=== PATIENT | female | born 1950 | race Caucasian/White ===

== ENCOUNTER 2017-11-07 14:56 | Outpatient (REF) | payer MEDICARE, SELFPAY ==
[2017-11-07 20:59] LABS: Anion Gap 11.1 mmol/L (3-11); BUN 24 mg/dL (7-18); CO2 25.9 mmol/L (21.0-32.0); CREATININE 1.08 mg/dL (0.55-1.02); Calcium 9.4 mg/dL (8.5-10.1); Chloride 101 mmol/L (98-107); Glucose 118 mg/dL (70-100); Potassium 4.3 mmol/L (3.5-5.1); Sodium 138 mmol/L (136-145); TSH (W/Ref FT4) 2.53 uIU/mL (0.358-3.74)
== END 2017-11-07 14:57 ==
LOC: NCHCN 14:56
PROVIDERS: PCP Family Medicine; Visit Provider Family Medicine
DX: E03.9 Hypothyroidism, unspecified (principal); I10 Essential (primary) hypertension; E11.9 Type 2 diabetes mellitus without complications; N18.9 Chronic kidney disease, unspecified
CPT/HCPCS: 80048; 84443

== ENCOUNTER 2018-05-01 09:58 | Outpatient (REF) | payer MEDICARE, SELFPAY | END 2018-05-01 10:18 | LOC: NCHCN 09:58 | PROVIDERS: PCP Family Medicine; Visit Provider Family Medicine | DX: R30.0 Dysuria (principal) | CPT/HCPCS: 87077; 87086; 87186 ==

== ENCOUNTER 2018-05-17 21:05 | Outpatient (REF) | payer MEDICARE, SELFPAY ==
[2018-05-17 22:34] LABS: Anion Gap 11.5 mmol/L (3-11); BUN 24 mg/dL (7-18); CO2 25.5 mmol/L (21.0-32.0); CREATININE 1.22 mg/dL (0.55-1.02); Calcium 9.4 mg/dL (8.5-10.1); Chloride 103 mmol/L (98-107); Glucose 175 mg/dL (70-100); Potassium 4.6 mmol/L (3.5-5.1); Sodium 140 mmol/L (136-145)
== END 2018-05-17 21:25 ==
LOC: NCHCN 21:05
PROVIDERS: PCP Family Medicine; Visit Provider Family Medicine
DX: N18.3 Chronic kidney disease, stage 3 (moderate) (principal)
CPT/HCPCS: 80048

== ENCOUNTER 2018-12-26 18:05 | Outpatient (REF) | payer MEDICARE, SELFPAY ==
[2018-12-26 22:27] LABS: ALT 43 U/L (14-59); AST 18 U/L (15-37); Alkaline Phosphatase 138 U/L (46-116); Anion Gap 7.2 mmol/L (3-11); BUN 31 mg/dL (7-18); Bilirubin, Total 0.4 mg/dL (0.2-1.0); CO2 30.8 mmol/L (21.0-32.0); CREATININE 1.13 mg/dL (0.55-1.02); Calcium 10.2 mg/dL (8.5-10.1); Chloride 101 mmol/L (98-107); Glucose 169 mg/dL (70-100); Magnesium 1.9 mg/dL (1.8-2.4); Sodium 139 mmol/L (136-145); TSH (W/Ref FT4) 2.94 uIU/mL (0.36-3.74); Total Protein 7.8 g/dL (6.4-8.2)
[2018-12-27 05:18] LABS: Vitamin D 25 Total 42.6 ng/ml (30-100)
== END 2018-12-26 18:25 ==
LOC: NCHCN 18:05
PROVIDERS: PCP Family Medicine; Visit Provider Family Medicine
DX: E03.9 Hypothyroidism, unspecified (principal); E11.9 Type 2 diabetes mellitus without complications; N18.3 Chronic kidney disease, stage 3 (moderate); K59.00 Constipation, unspecified
CPT/HCPCS: 80053; 82306; 83735; 84443

== ENCOUNTER 2019-04-05 19:02 | Outpatient (REF) | payer MEDICARE, SELFPAY ==
[2019-04-05 20:56] LABS: COMMENT (LAB VIEW ONLY) 40.11 mg/dL; Microalb ug/mg Crea 43.6 ug/mg Cr
== END 2019-04-05 19:22 ==
LOC: NCHCN 19:02
PROVIDERS: PCP Family Medicine; Visit Provider Family Medicine
DX: E11.9 Type 2 diabetes mellitus without complications (principal)
CPT/HCPCS: 82043; 82570

== ENCOUNTER 2019-05-14 14:46 | Outpatient (REF) | payer MEDICARE, SELFPAY ==
[2019-05-14 21:25] LABS: Anion Gap 12.5 mmol/L (3-11); BUN 30 mg/dL (7-18); CO2 24.5 mmol/L (21.0-32.0); CREATININE 1.51 mg/dL (0.55-1.02); Calcium 9.6 mg/dL (8.5-10.1); Chloride 103 mmol/L (98-107); Estimated GFR 34.07 (mL/min/1.73m2); Glucose 140 mg/dL (74-106); Potassium 4.7 mmol/L (3.5-5.1); Sodium 140 mmol/L (136-145)
== END 2019-05-14 15:06 ==
LOC: NCHCN 14:46
PROVIDERS: PCP Family Medicine; Visit Provider Family Medicine
DX: E11.65 Type 2 diabetes mellitus with hyperglycemia (principal)
CPT/HCPCS: 80048

== ENCOUNTER 2019-05-29 13:43 | Outpatient (REF) | payer MEDICARE, SELFPAY ==
[2019-05-29 22:18] LABS: CREATININE 1.42 mg/dL (0.55-1.02); Estimated GFR 36.57 (mL/min/1.73m2)
== END 2019-05-29 14:03 ==
LOC: NCHCN 13:43
PROVIDERS: PCP Family Medicine; Visit Provider Family Medicine
DX: I10 Essential (primary) hypertension (principal); E11.65 Type 2 diabetes mellitus with hyperglycemia; N18.3 Chronic kidney disease, stage 3 (moderate)
CPT/HCPCS: 82565

== ENCOUNTER 2019-06-28 09:39 | Outpatient (REF) | payer MEDICARE, SELFPAY ==
[2019-06-28 20:59] LABS: Anion Gap 10.4 mmol/L (3-11); BUN 27 mg/dL (7-18); CO2 27.6 mmol/L (21.0-32.0); CREATININE 1.24 mg/dL (0.55-1.02); Calcium 9.8 mg/dL (8.5-10.1); Chloride 102 mmol/L (98-107); Estimated GFR 42.64 (mL/min/1.73m2); Glucose 197 mg/dL (74-106); Sodium 140 mmol/L (136-145)
[2019-06-28 21:06] LABS: Hemoglobin A1C 7.9 % (3.8-5.6)
== END 2019-06-28 09:59 ==
LOC: NCHCN 09:39
PROVIDERS: PCP Family Medicine; Visit Provider Family Medicine
DX: E11.65 Type 2 diabetes mellitus with hyperglycemia (principal); I10 Essential (primary) hypertension
CPT/HCPCS: 80048; 83036

== ENCOUNTER 2019-12-25 12:17 | Outpatient (REF) | payer MEDICARE, SELFPAY ==
[2019-12-25 22:25] LABS: HCT 36.9 % (36.0-46.0); HGB 12.3 g/dL (11.2-15.7); MCH 28.1 pg (27.0-33.0); MCHC 33.3 % (32.0-36.0); MCV 84.4 fL (80-95); MPV 9.6 fL (8.0-11.0); Platelet Count 369 10^3/uL (130-400); RBC 4.37 10^6/uL (3.93-5.22); RDW 13.3 % (11.7-14.6); RDW-SD 41.6 fL; WBC 8.91 10^3/uL (4.4-10.8)
[2019-12-25 22:39] LABS: ALT 44 U/L (14-59); AST 23 U/L (15-37); Albumin 4.2 g/dL (3.4-5.0); Alkaline Phosphatase 99 U/L (46-116); Anion Gap 11.4 mmol/L (3-11); BUN 17 mg/dL (7-18); Bilirubin, Total 0.8 mg/dL (0.2-1.0); CO2 22.6 mmol/L (21.0-32.0); CREATININE 1.06 mg/dL (0.55-1.02); Calcium 9.2 mg/dL (8.5-10.1); Calculated LDL 100 mg/dL (<100); Chloride 98 mmol/L (98-107); Cholesterol 193 mg/dL (<200); Glucose 198 mg/dL (74-106); HDL Cholesterol 59 mg/dL (40-60); Hemoglobin A1C 7.7 % (<5.7); Potassium 4.4 mmol/L (3.5-5.1); Sodium 132 mmol/L (136-145); Total Protein 7.7 g/dL (6.4-8.2); Triglyceride 174 mg/dL (<150)
== END 2019-12-25 12:37 ==
LOC: NCHCN 12:17
PROVIDERS: PCP Family Medicine; Visit Provider Family Medicine
DX: E11.65 Type 2 diabetes mellitus with hyperglycemia (principal); I10 Essential (primary) hypertension; E78.5 Hyperlipidemia, unspecified; N18.3 Chronic kidney disease, stage 3 (moderate)
CPT/HCPCS: 80053; 80061; 85027; 83036

== ENCOUNTER 2020-01-21 15:25 | Outpatient (REF) | payer MEDICARE, SELFPAY ==
--- NOTE | 2020-01-21 09:55 | SKI_PTH ---
PATIENT: Bette Dominguez LOC: REPLACED BY [facility] U#:[id number] AGE/SX: 69/F ROOM: RE01/21/[address]: Sp iXao : 1950 BED: DIS: 01/21/2020 SPEC #: [id number] RECD: 01/22/20 12:46 STATUS: ARMOND REQ #: [id number] EDILBERTO: 01/21/20 09:[address]: Sp Xiao DEPT: Surgical Specimen RECD BY: Chloe Kim ENTERED: 01/22/20 12:47 SP TYPE: NICKI HUDDLESTON DR: Rosa Contreras Tissues: 1 - SKIN BIOPSY(SHAVE/PUNCH) Procedures: SKIN LEVEL 4 Comments: [id number]
== END 2020-01-21 15:45 ==
LOC: NCHCN 15:25
PROVIDERS: PCP Family Medicine; Visit Provider Family Medicine
DX: C44.311 Basal cell carcinoma of skin of nose (principal)
CPT/HCPCS: 88305

== ENCOUNTER 2020-03-31 23:03 | Outpatient (REF) | payer MEDICARE, SELFPAY ==
[2020-03-31 22:01] LABS: COMMENT (LAB VIEW ONLY) 37.24 mg/dL
[2020-03-31 22:07] LABS: Microalb ug/mg Crea 126.5 ug/mg Cr
== END 2020-03-31 23:23 ==
LOC: NCHCN 23:03
PROVIDERS: PCP Family Medicine; Visit Provider Family Medicine
DX: E11.65 Type 2 diabetes mellitus with hyperglycemia (principal); R82.90 Unspecified abnormal findings in urine
CPT/HCPCS: 82043; 82570; 87086

== ENCOUNTER 2020-04-24 18:45 | Outpatient (REF) | payer MEDICARE, SELFPAY ==
[2020-04-24 20:34] LABS: Anion Gap 10.1 mmol/L (3-11); BUN 29 mg/dL (7-18); CO2 26.9 mmol/L (21.0-32.0); Calcium 9.6 mg/dL (8.5-10.1); Chloride 99 mmol/L (98-107); Estimated GFR 40.38 (mL/min/1.73m2); Glucose 139 mg/dL (74-106); Potassium 4.3 mmol/L (3.5-5.1); Sodium 136 mmol/L (136-145)
== END 2020-04-24 19:05 ==
LOC: NCHCN 18:45
PROVIDERS: PCP Family Medicine; Visit Provider Family Medicine
DX: I10 Essential (primary) hypertension (principal); E11.65 Type 2 diabetes mellitus with hyperglycemia; R80.9 Proteinuria, unspecified
CPT/HCPCS: 80048

== ENCOUNTER 2020-05-14 18:39 | Outpatient (REF) | payer MEDICARE, SELFPAY ==
[2020-05-14 21:26] LABS: Anion Gap 11.3 mmol/L (3-11); BUN 24 mg/dL (7-18); CO2 24.7 mmol/L (21.0-32.0); CREATININE 1.3 mg/dL (0.55-1.02); Calcium 9.6 mg/dL (8.5-10.1); Chloride 101 mmol/L (98-107); Estimated GFR 40.38 (mL/min/1.73m2); Glucose 140 mg/dL (74-106); Potassium 4.2 mmol/L (3.5-5.1); Sodium 137 mmol/L (136-145)
== END 2020-05-14 18:40 | disposition home or self-care (01) ==
LOC: NCHCN 18:39
PROVIDERS: PCP Family Medicine; Visit Provider Nurse Practitioner Family
DX: I10 Essential (primary) hypertension (principal)
CPT/HCPCS: 80048

== ENCOUNTER 2020-06-23 15:20 | Outpatient (REF) | payer MEDICARE, SELFPAY ==
[2020-06-23 21:48] LABS: Anion Gap 11.6 mmol/L (3-11); BUN 25 mg/dL (7-18); CO2 26.4 mmol/L (21.0-32.0); CREATININE 1.3 mg/dL (0.55-1.02); Calcium 9.6 mg/dL (8.5-10.1); Chloride 101 mmol/L (98-107); Estimated GFR 40.26 (mL/min/1.73m2); Glucose 164 mg/dL (74-106); Potassium 4.5 mmol/L (3.5-5.1); Sodium 139 mmol/L (136-145)
[2020-06-23 22:01] LABS: Hemoglobin A1C 7.9 % (<5.7)
== END 2020-06-23 15:21 | disposition home or self-care (01) ==
LOC: NCHCN 15:20
PROVIDERS: PCP Family Medicine; Visit Provider Family Medicine
DX: I10 Essential (primary) hypertension (principal); E11.65 Type 2 diabetes mellitus with hyperglycemia; N18.30 Chronic kidney disease, stage 3 unspecified
CPT/HCPCS: 80048; 83036

== ENCOUNTER 2020-12-25 08:31 | Outpatient (REF) | payer MEDICARE, SELFPAY ==
[2020-12-25 13:58] LABS: ALT 32 U/L (14-59); AST 17 U/L (15-37); Albumin 4.1 g/dL (3.4-5.0); Alkaline Phosphatase 98 U/L (46-116); Anion Gap 11.1 mmol/L (3-11); BUN 32 mg/dL (7-18); Bilirubin, Total 0.6 mg/dL (0.2-1.0); CO2 24.9 mmol/L (21.0-32.0); CREATININE 1.2 mg/dL (0.55-1.02); Calcium 9.3 mg/dL (8.5-10.1); Calculated LDL 82 mg/dL (<100); Chloride 99 mmol/L (98-107); Cholesterol 181 mg/dL (<200); Estimated GFR 44.16 (mL/min/1.73m2); Glucose 138 mg/dL (74-106); HDL Cholesterol 57 mg/dL (40-60); Potassium 4.8 mmol/L (3.5-5.1); Sodium 135 mmol/L (136-145); TSH (W/Ref FT4) 4.55 uIU/mL (0.36-3.74); Total Protein 7.5 g/dL (6.4-8.2); Triglyceride 212 mg/dL (<150)
[2020-12-25 14:15] LABS: COMMENT (LAB VIEW ONLY) 30.02 mg/dL; FREE T4 0.86 ng/dL (0.76-1.46); Microalb ug/mg Crea 23.7 ug/mg Cr
== END 2020-12-25 08:32 | disposition home or self-care (01) ==
LOC: NCHCN 08:31
PROVIDERS: PCP Family Medicine; Visit Provider Family Medicine
DX: E03.9 Hypothyroidism, unspecified (principal); I10 Essential (primary) hypertension; E78.5 Hyperlipidemia, unspecified; E11.9 Type 2 diabetes mellitus without complications; N18.30 Chronic kidney disease, stage 3 unspecified
CPT/HCPCS: 80053; 80061; 82043; 82570; 83036; 84439; 84443

== ENCOUNTER 2021-06-25 13:38 | Outpatient (REF) | payer MEDICARE, SELFPAY ==
[2021-06-25 21:16] LABS: Hemoglobin A1C 7.1 % (<5.7)
[2021-06-25 21:19] LABS: Anion Gap 9.7 mmol/L (3-11); BUN 34 mg/dL (7-18); CO2 26.3 mmol/L (21.0-32.0); CREATININE 1.3 mg/dL (0.55-1.02); Calcium 9.4 mg/dL (8.5-10.1); Chloride 104 mmol/L (98-107); Estimated GFR 40.15 (mL/min/1.73m2); Glucose 103 mg/dL (74-106); Potassium 4.8 mmol/L (3.5-5.1); Sodium 140 mmol/L (136-145)
== END 2021-06-25 13:39 | disposition home or self-care (01) ==
LOC: NCHCN 13:38
PROVIDERS: PCP Family Medicine; Visit Provider Family Medicine
DX: E11.9 Type 2 diabetes mellitus without complications (principal)
CPT/HCPCS: 80048; 83036

== ENCOUNTER 2021-10-05 17:17 | Outpatient (REF) | payer MEDICARE, SELFPAY ==
[2021-10-05 21:36] LABS: COMMENT (LAB VIEW ONLY) 26.06 mg/dL; Microalb ug/mg Crea 41.1 ug/mg Cr
== END 2021-10-05 17:18 | disposition home or self-care (01) ==
LOC: NCHCN 17:17
PROVIDERS: PCP Family Medicine; Visit Provider Family Medicine
DX: E11.9 Type 2 diabetes mellitus without complications (principal); R39.89 Other symptoms and signs involving the genitourinary system
CPT/HCPCS: 82043; 82570; 87086

== ENCOUNTER 2021-12-28 18:20 | Outpatient (REF) | payer MEDICARE, SELFPAY ==
[2021-12-28 22:08] LABS: Hemoglobin A1C 7.4 % (<5.7)
[2021-12-28 22:14] LABS: ALT 29 U/L (14-59); AST 21 U/L (15-37); Albumin 3.8 g/dL (3.4-5.0); Alkaline Phosphatase 89 U/L (46-116); Anion Gap 15.1 mmol/L (3-11); BUN 30 mg/dL (7-18); Bilirubin, Total 0.6 mg/dL (0.2-1.0); CO2 20.9 mmol/L (21.0-32.0); CREATININE 1.4 mg/dL (0.55-1.02); Calculated LDL 78 mg/dL (<100); Chloride 99 mmol/L (98-107); Cholesterol 177 mg/dL (<200); Estimated GFR 39.73 (mL/min/1.73m2); Glucose 148 mg/dL (74-106); HDL Cholesterol 59 mg/dL (40-60); Potassium 4.2 mmol/L (3.5-5.1); Sodium 135 mmol/L (136-145); Total Protein 7.7 g/dL (6.4-8.2); Triglyceride 204 mg/dL (<150)
== END 2021-12-28 18:21 | disposition home or self-care (01) ==
LOC: NCHCN 18:20
PROVIDERS: PCP Family Medicine; Visit Provider Family Medicine
DX: E11.9 Type 2 diabetes mellitus without complications (principal); N18.30 Chronic kidney disease, stage 3 unspecified; E78.5 Hyperlipidemia, unspecified
CPT/HCPCS: 80053; 80061; 83036

== ENCOUNTER 2022-01-04 21:12 | Outpatient (REF) | payer MEDICARE, SELFPAY | END 2022-01-04 21:13 | disposition home or self-care (01) | LOC: NCHCN 21:12 | PROVIDERS: PCP Family Medicine; Visit Provider Family Medicine | DX: R80.9 Proteinuria, unspecified (principal) | CPT/HCPCS: 87086 ==

== ENCOUNTER 2022-07-22 15:12 | Outpatient (REF) | payer MEDICARE, SELFPAY ==
--- OUTSIDE RECORDS SUMMARY | 2022-07-22 15:16 | XMS_ITS | CCD ---
Author Name Unknown Address [address] [place] [address] [id number] Organization Unknown Address [address] [place] [address] [phone] Care Team Providers Care Silk Blocker Name Role Phone ANDREW POP MD Attending Physician [phone] Vital Signs Unknown or Not Available. Allergies Allergy Code Allergy Type Reaction Status No Known Drug Allergies 0 No known drug allergies Active Procedures Unknown or Not Available. History of Immunizations Immunization Code Date pneumococcal, unspecified formulation 109 02/08/2011 DTaP 20 07/05/2011 zoster live 121 07/05/2011 influenza, whole 16 03/07/2013 Problems Unknown or Not Available. Results Unknown or Not Available. Active Medications Unknown or Not Available. Medications Administered During Visit Unknown or Not Available. Encounters Encounter Diagnosis Diagnosis Code Start Date Laceration of finger without foreign body [id number] 009 12/03/2020 Social History Smoking Status Code Start Date End Date Never smoker [id number] Patient Decision Aids Unknown or Not Available. Discharge Instructions You were admitted to [facility] on 12/03/2020 08:55 with a principal diagnosis of Laceration without foreign body of right little finger without damage to nail, initial encounter You were discharged from [facility] on 12/03/2020 08:55 Should you have any questions prior to discharge, please contact a member of your healthcare team. If you have left the hospital and have any questions, please contact your primary care physician. Chief Complaint and Reason For Visit Unknown or Not Available. Function Status Unknown or Not Available. Plan of Care Unknown or Not Available. Referral/Transition of Care Unknown or Not Available.
--- OUTSIDE RECORDS SUMMARY | 2022-07-22 15:16 | XMS_ITS | CCD ---
Author Name Unknown Address [address] [place] [address] [phone] Organization Unknown Address [address] [place] [address] [phone] Care Team Providers Care Plate Colorer Name Role Phone CHENTE LAWLER, DEBBIE PEDROZA Attending Physician [phone] CHENTE LAWLER, DEBBIE PEDROZA Er Physician [phone] Vital Signs Unknown or Not Available. Allergies [...] Encounter Diagnosis Diagnosis Code Start Date Laceration without foreign b sharon of right little finger without damage to nail, initial encounter [id number] 11/29/2020 Social History Smoking Status Code Start Date End Date Never smoker [id number] Patient Decision Aids Unknown or Not Available. Discharge Instructions You were admitted to [facility] on 11/29/2020 14:44 with a principal diagnosis of Laceration without foreign body of right little finger without damage to nail, initial encounter You were discharged from [facility] on 11/29/2020 17:12 Should you have any questions prior to discharge, please contact a member of your healthcare team. If you have left the hospital and have any questions, please contact your primary care physician. Chief Complaint and Reason For Visit Chief Complaint Date of Onset R HAND BLEEDING Function Status Unknown or Not Available. Plan of Care Unknown or Not Available. Referral/Transition of Care Unknown or Not Available.
[2022-07-22 20:51] LABS: HCT 34.6 % (36.0-46.0); HGB 11.7 g/dL (11.2-15.7); MCH 29.5 pg (27.0-33.0); MCHC 33.8 % (32.0-36.0); MCV 87 fL (80-95); MPV 9.1 fL (8.0-11.0); Platelet Count 369 10^3/uL (130-400); RBC 3.97 10^6/uL (3.93-5.22); RDW 12.9 % (11.7-14.6); RDW-SD 41.1 fL; WBC 9.48 10^3/uL (4.4-10.8)
[2022-07-22 21:04] LABS: Hemoglobin A1C 6.3 % (<5.7)
[2022-07-22 21:12] LABS: Anion Gap 9.3 mmol/L (3-11); BUN 23 mg/dL (7-18); CO2 26.7 mmol/L (21.0-32.0); CREATININE 1.4 mg/dL (0.55-1.02); Calcium 9.6 mg/dL (8.5-10.1); Chloride 101 mmol/L (98-107); Estimated GFR 39.48 (mL/min/1.73m2); Glucose 103 mg/dL (74-106); Potassium 4.6 mmol/L (3.5-5.1); Sodium 137 mmol/L (136-145); TSH (W/Ref FT4) 2.41 uIU/mL (0.36-3.74)
== END 2022-07-22 15:13 | disposition home or self-care (01) ==
LOC: NCHCN 15:12
PROVIDERS: PCP Family Medicine; Visit Provider Family Medicine
DX: R06.02 Shortness of breath (principal); E03.9 Hypothyroidism, unspecified; E11.9 Type 2 diabetes mellitus without complications; R42 Dizziness and giddiness
CPT/HCPCS: 80048; 85027; 83036; 84443

== ENCOUNTER 2022-07-25 15:23 | Outpatient (REF) | payer MEDICARE, SELFPAY ==
[2022-07-25 15:48] LABS: COMMENT (LAB VIEW ONLY) 29.41 mg/dL; Microalb ug/mg Crea 46.9 ug/mg Cr
== END 2022-07-25 15:24 | disposition home or self-care (01) ==
LOC: NCHCN 15:23
PROVIDERS: PCP Family Medicine; Visit Provider Family Medicine
DX: E11.9 Type 2 diabetes mellitus without complications (principal)
CPT/HCPCS: 82043; 82570

== ENCOUNTER 2022-11-02 14:22 | Outpatient (REF) | payer MEDICARE, SELFPAY ==
[2022-11-02 21:23] LABS: Bilirubin Negative (Negative); Blood Small (Negative); Clarity Cloudy (Clear); Glucose Negative (Negative); Ketones Negative (Negative); Leukocyte Esterase Large (Negative); Nitrite Negative (Negative); Urobilinogen 0.2 mg/dL (Up to 0.2)
[2022-11-02 21:58] LABS: Bacteria Many HPF (Negative); C & S Indicated? Yes; Crystals Negative HPF (Negative); Epithelial Cells Rare HPF (Negative); Mucus Negative (Negative); Other Cells Rare Transitional (Negative); WBC >50 HPF (0-5)
== END 2022-11-02 14:23 | disposition home or self-care (01) ==
LOC: NCHCN 14:22
PROVIDERS: PCP Family Medicine; Visit Provider Family Medicine
DX: E11.9 Type 2 diabetes mellitus without complications (principal); N39.46 Mixed incontinence
CPT/HCPCS: 87077; 81003; 81015; 87086; 87186

== ENCOUNTER 2023-04-27 14:50 | Outpatient (REF) | payer MEDICARE, SELFPAY ==
--- OUTSIDE RECORDS SUMMARY | 2023-04-27 14:54 | XMS_ITS | CCD ---
Author Name Unknown Address [address] [place] [address] [phone] Organization Unknown Address [address] [place] [address] [phone] Care Team Providers Care Internal Medicine Doctor Name Role Phone ANDREW POP MD Attending Physician [phone] Vital Signs Unknown or Not Available. Allergies [...] Date Laceration of finger without foreign body [id number] 009 12/03/2020 Social History Smoking Status Code Start Date End Date Never smoker [id number] Patient Decision Aids Unknown or Not Available. Discharge Instructions You were admitted to [facility] on 12/03/2020 08:55 with a principal diagnosis of Laceration without foreign body of right little finger without damage to nail, initial encounter You were discharged from [facility] on 12/03/2020 08:55 Should you have [...]
--- OUTSIDE RECORDS SUMMARY | 2023-04-27 14:54 | XMS_ITS | CCD ---
Author Name Unknown Address [address] [place] [address] [phone] Organization Unknown Address [address] [place] [address] [phone] Care Team Providers Care Manager Quantitative Name Role Phone CHENTE LAWLER, DEBBIE PEDROZA Attending Physician [phone] CHENTE LAWLER, DEBBIE PEDROZA Er Physician [phone] Vital Signs Unknown or Not Available. Allergies [...] finger without damage to nail, initial encounter [id number] 11/29/2020 Social History Smoking Status Code Start Date End Date Never smoker [id number] Patient Decision Aids Unknown or Not Available. Discharge Instructions You were admitted to [facility] on 11/29/2020 14:44 with a principal diagnosis of Laceration without foreign body of right little finger without damage to nail, initial encounter You were discharged from [facility] on 11/29/2020 17:12 Should you [...]
[2023-04-27 21:49] LABS: Abs Immature Grans 0.03 10^3/uL (0.0-0.06); Absolute Basophil Count 0.07 10^3/uL (0.0-0.2); Absolute Eosinophil Count 0.21 10^3/uL (0.0-0.7); Absolute Lymphocyte Count 2.41 10^3/uL (1.2-3.4); Absolute Monocyte Count 1.33 10^3/uL (0.1-0.8); Basophils % 0.6; Eosinophils % 1.9; HCT 30.1 % (36.0-46.0); HGB 10.1 g/dL (11.2-15.7); Immature Grans % 0.3; Lymphocytes % 21.6; MCHC 33.6 % (32.0-36.0); MCV 83 fL (80-95); MPV 9.4 fL (8.0-11.0); Monocytes % 11.9; Neutrophils % 63.7; Platelet Count 454 10^3/uL (130-400); RBC 3.61 10^6/uL (3.93-5.22); RDW-SD 42.8 fL; WBC 11.15 10^3/uL (4.4-10.8)
[2023-04-27 22:11] LABS: ALT 31 U/L (14-59); AST 20 U/L (15-37); Albumin 3.8 g/dL (3.4-5.0); Alkaline Phosphatase 120 U/L (46-116); Anion Gap 8.8 mmol/L (3-11); BUN 27 mg/dL (7-18); Bilirubin, Total 0.3 mg/dL (0.2-1.0); CO2 26.2 mmol/L (21.0-32.0); CREATININE 1.4 mg/dL (0.55-1.02); Calcium 9.4 mg/dL (8.5-10.1); Calculated LDL 55 mg/dL (<100); Chloride 101 mmol/L (98-107); Cholesterol 145 mg/dL (<200); Estimated GFR 39.48 (mL/min/1.73m2); Glucose 140 mg/dL (74-106); HDL Cholesterol 71 mg/dL (40-60); Potassium 4.7 mmol/L (3.5-5.1); Sodium 136 mmol/L (136-145); Triglyceride 96 mg/dL (<150)
[2023-04-27 22:22] LABS: Hemoglobin A1C 6.7 % (<5.7)
== END 2023-04-27 14:51 | disposition home or self-care (01) ==
LOC: NCHCN 14:50
PROVIDERS: PCP Family Medicine; Visit Provider Family Medicine
DX: E03.9 Hypothyroidism, unspecified (principal); E11.9 Type 2 diabetes mellitus without complications; E78.5 Hyperlipidemia, unspecified; R06.09 Other forms of dyspnea
CPT/HCPCS: 80053; 80061; 83036; 84443; 85025

== ENCOUNTER 2023-05-02 16:24 | Outpatient (REF) | payer MEDICARE, SELFPAY ==
--- OUTSIDE RECORDS SUMMARY | 2023-05-02 16:26 | XMS_ITS | CCD ---
Author Name Unknown Address [address] [place] [address] [phone] Organization Unknown Address [address] [place] [address] [phone] Care Team Providers Care Field Attendant Name Role Phone ANDREW POP MD Attending Physician [phone] Vital Signs Unknown or Not Available. Allergies [...] Encounters Encounter Diagnosis Diagnosis Code Start Date Crushing injury of right lit tle finger, subsequent encounter [id number] 12/09/2020 Social History Smoking Status Code Start Date End Date Never smoker [id number] Patient Decision Aids Unknown or Not Available. Discharge Instructions You were admitted to [facility] 01 on 12/09/2020 15:02 with a principal diagnosis of Crushing injury of right little finger, subsequent encounter You were discharged from [facility] on 12/09/2020 15:02 Should you have any questions prior to [...]
--- OUTSIDE RECORDS SUMMARY | 2023-05-02 16:26 | XMS_ITS | CCD ---
Author Name Unknown Address [address] [place] [address] [phone] Organization Unknown Address [address] [place] [address] [phone] Care Team Providers Care Testing Director Name Role Phone CHENTE LAWLER, DEBBIE PEDROZA Attending Physician [phone] CHENTE LAWLER, DEBBIE PEDROZA Er Physician [phone] Vital Signs Unknown or Not Available. Allergies [...] finger without damage to nail, initial encounter [id number] 11/29/2020 Social History Smoking Status Code Start Date End Date Never smoker [id number] Patient Decision Aids Unknown or Not Available. [...]
--- OUTSIDE RECORDS SUMMARY | 2023-05-02 16:26 | XMS_ITS | CCD ---
Author Name Unknown Address [address] [place] [address] [phone] Organization Unknown Address [address] [place] [address] [phone] Care Team Providers Care Director Of Quality Name Role Phone ANDREW POP MD Attending Physician [phone] Vital Signs Unknown or Not Available. Allergies [...] Date Laceration of finger without foreign body 132797 009 12/03/2020 Social History Smoking Status Code Start Date End Date Never smoker [id number] Patient Decision Aids Unknown or Not Available. [...]
[2023-05-02 20:34] LABS: HCT 30.7 % (36.0-46.0); HGB 10.1 g/dL (11.2-15.7); MCH 27.2 pg (27.0-33.0); MCHC 32.9 % (32.0-36.0); MCV 83 fL (80-95); MPV 8.7 fL (8.0-11.0); Platelet Count 463 10^3/uL (130-400); RBC 3.72 10^6/uL (3.93-5.22); RDW-SD 42.1 fL; WBC 11.97 10^3/uL (4.4-10.8)
[2023-05-02 20:55] LABS: Iron 82 ug/dL (50-170); Total Iron Binding Capacity 397 ug/dL (250-450); Transferrin Sat 21 % (15-50)
[2023-05-02 21:18] LABS: Ferritin 12 ng/mL (8-252); Vitamin B12 1587 pg/mL (193-986)
[2023-05-02 21:35] LABS: Folate > 20.0 ng/mL (8.6-20.0)
== END 2023-05-02 16:25 | disposition home or self-care (01) ==
LOC: NCHCN 16:24
PROVIDERS: PCP Family Medicine; Visit Provider Family Medicine
DX: D64.9 Anemia, unspecified (principal); E11.9 Type 2 diabetes mellitus without complications; E03.9 Hypothyroidism, unspecified; R31.29 Other microscopic hematuria; E53.8 Deficiency of other specified B group vitamins
CPT/HCPCS: 85027; 82607; 82728; 82746; 83540; 83550; 87086

== ENCOUNTER 2023-05-16 17:55 | Outpatient (REF) | payer MEDICARE, SELFPAY | END 2023-05-16 17:56 | disposition home or self-care (01) | LOC: NCHCN 17:55 | PROVIDERS: PCP Family Medicine; Visit Provider Physician Assistant | DX: Z87.440 Personal history of urinary (tract) infections (principal); R82.998 Other abnormal findings in urine | CPT/HCPCS: 87086 ==

== ENCOUNTER 2023-08-01 16:03 | Outpatient (REF) | payer MEDICARE, SELFPAY ==
[2023-08-01 22:24] LABS: COMMENT (LAB VIEW ONLY) 28.73 mg/dL; Microalb ug/mg Crea 37.9 ug/mg Cr
== END 2023-08-01 16:04 | disposition home or self-care (01) ==
LOC: NCHCN 16:03
PROVIDERS: PCP Family Medicine; Visit Provider Family Medicine
DX: E11.9 Type 2 diabetes mellitus without complications (principal)
CPT/HCPCS: 82043; 82570

== ENCOUNTER 2023-11-30 16:40 | Outpatient (REF) | payer MEDICARE, SELFPAY ==
[2023-11-30 21:46] LABS: HGB 11.5 g/dL (11.2-15.7); MCH 28.8 pg (27.0-33.0); MCHC 33.8 % (32.0-36.0); MCV 85 fL (80-95); MPV 9.4 fL (8.0-11.0); Platelet Count 380 10^3/uL (130-400); RBC 3.99 10^6/uL (3.93-5.22); RDW 13.4 % (11.7-14.6); RDW-SD 41.7 fL; WBC 10.07 10^3/uL (4.4-10.8)
[2023-11-30 22:11] LABS: Anion Gap 8.6 mmol/L (3-11); BUN 19 mg/dL (7-18); CO2 28.4 mmol/L (21.0-32.0); CREATININE 1.2 mg/dL (0.55-1.02); Chloride 94 mmol/L (98-107); Estimated GFR 47.21 (mL/min/1.73m2); Ferritin 75 ng/mL (8-252); Glucose 96 mg/dL (74-106); Potassium 4.3 mmol/L (3.5-5.1); Sodium 131 mmol/L (136-145)
[2023-11-30 22:54] LABS: Iron 59 ug/dL (50-170); Total Iron Binding Capacity 344 ug/dL (250-450); Transferrin Sat 17 % (15-50)
== END 2023-11-30 16:41 | disposition home or self-care (01) ==
LOC: NCHCN 16:40
PROVIDERS: PCP Family Medicine; Visit Provider Family Medicine
DX: E11.9 Type 2 diabetes mellitus without complications (principal); D64.9 Anemia, unspecified; R82.998 Other abnormal findings in urine
CPT/HCPCS: 80048; 85027; 82728; 83540; 83550; 87086

== ENCOUNTER 2024-04-02 12:20 | Outpatient (REF) | payer MEDICARE, SELFPAY ==
[2024-04-02 15:11] LABS: HCT 32.9 % (36.0-46.0); HGB 11.3 g/dL (11.2-15.7); MCH 29.5 pg (27.0-33.0); MCHC 34.3 % (32.0-36.0); MCV 86 fL (80-95); MPV 9.1 fL (8.0-11.0); Platelet Count 312 10^3/uL (130-400); RBC 3.83 10^6/uL (3.93-5.22); RDW 14.5 % (11.7-14.6); RDW-SD 45.5 fL; WBC 6.67 10^3/uL (4.4-10.8)
[2024-04-02 15:38] LABS: Ferritin 238 ng/mL (8-252)
[2024-04-02 15:52] LABS: Iron 79 ug/dL (50-170); Total Iron Binding Capacity 284 ug/dL (250-450); Transferrin Sat 28 % (15-50)
== END 2024-04-02 12:21 | disposition home or self-care (01) ==
LOC: NCHCN 12:20
PROVIDERS: PCP Family Medicine; Visit Provider Family Medicine
DX: D50.9 Iron deficiency anemia, unspecified (principal)
CPT/HCPCS: 85027; 82728; 83540; 83550

== ENCOUNTER 2024-07-10 21:33 | Outpatient (REF) | payer MEDICARE, SELFPAY | END 2024-07-10 21:34 | disposition home or self-care (01) | LOC: NCHCN 21:33 | PROVIDERS: PCP Family Medicine; Visit Provider Family Medicine | DX: R30.0 Dysuria (principal) | CPT/HCPCS: 87086 ==

== ENCOUNTER 2024-10-17 21:31 | Outpatient (REF) | payer MEDICARE, SELFPAY ==
[2024-10-17 22:06] LABS: Anion Gap 10.9 mmol/L (3-11); BUN 27 mg/dL (7-18); CO2 23.1 mmol/L (21.0-32.0); Calcium 9.4 mg/dL (8.5-10.1); Chloride 94 mmol/L (98-107); Estimated GFR 46.91 (mL/min/1.73m2); Glucose 132 mg/dL (74-106); Potassium 4.3 mmol/L (3.5-5.1); Sodium 128 mmol/L (136-145)
== END 2024-10-17 21:32 | disposition home or self-care (01) ==
LOC: NCHCN 21:31
PROVIDERS: PCP Family Medicine; Visit Provider Family Medicine
DX: N18.30 Chronic kidney disease, stage 3 unspecified (principal)
CPT/HCPCS: 80048

== ENCOUNTER 2024-11-06 18:19 | Outpatient (REF) | payer MEDICARE, SELFPAY ==
[2024-11-06 20:38] LABS: Anion Gap 8.6 mmol/L (3-11); BUN 23 mg/dL (7-18); CO2 26.4 mmol/L (21.0-32.0); Calcium 9.6 mg/dL (8.5-10.1); Chloride 97 mmol/L (98-107); Estimated GFR 52.08 (mL/min/1.73m2); Glucose 114 mg/dL (74-106); Potassium 4.8 mmol/L (3.5-5.1); Sodium 132 mmol/L (136-145)
== END 2024-11-06 18:20 | disposition home or self-care (01) ==
LOC: NCHCN 18:19
PROVIDERS: PCP Family Medicine; Visit Provider Family Medicine
DX: E87.1 Hypo-osmolality and hyponatremia (principal)
CPT/HCPCS: 80048

== ENCOUNTER 2025-03-18 10:48 | Outpatient (REF) | payer MEDICARE, SELFPAY ==
[2025-03-18 14:19] LABS: HCT 32.9 % (36.0-46.0); HGB 11.0 g/dL (11.2-15.7); MCH 30.1 pg (27.0-33.0); MCHC 33.4 % (32.0-36.0); MCV 90 fL (80-95); MPV 8.7 fL (8.0-11.0); Platelet Count 397 10^3/uL (130-400); RBC 3.66 10^6/uL (3.93-5.22); RDW 12.4 % (11.7-14.6); RDW-SD 41.1 fL; WBC 9.08 10^3/uL (4.4-10.8)
[2025-03-18 15:40] LABS: Hemoglobin A1C 6.1 % (<5.7)
[2025-03-18 16:15] LABS: TSH 2.81 uIU/mL (0.55-4.78)
[2025-03-18 16:23] LABS: ALT 17 U/L (10-49); AST 19 U/L (<34); Albumin 4.3 g/dL (3.2-5.0); Alkaline Phosphatase 101 U/L (46-116); Anion Gap 11 mmol/L (3-11); BUN 24 mg/dL (9-23); Bilirubin, Total 0.6 mg/dL (0.2-1.2); CO2 23.0 mmol/L (20.0-31.0); Calcium 9.4 mg/dL (8.3-10.6); Chloride 103 mmol/L (98-107); Cholesterol 224 mg/dL (<200); Glucose 140 mg/dL (74-106); HDL Cholesterol 64 mg/dL (>40); Potassium 4.3 mmol/L (3.5-5.1); Sodium 137 mmol/L (136-145); Total Protein 7.4 g/dL (5.7-8.2)
== END 2025-03-18 10:49 | disposition home or self-care (01) ==
LOC: NCHCN 10:48
PROVIDERS: PCP Family Medicine; Visit Provider Family Medicine
DX: E03.9 Hypothyroidism, unspecified (principal); E78.5 Hyperlipidemia, unspecified; N18.30 Chronic kidney disease, stage 3 unspecified; E11.9 Type 2 diabetes mellitus without complications; D50.9 Iron deficiency anemia, unspecified
CPT/HCPCS: 80053; 80061; 85027; 83036; 84443

== ENCOUNTER 2025-03-25 14:14 | Outpatient (REF) | payer MEDICARE, SELFPAY ==
[2025-03-25 21:56] LABS: Microalb ug/mg Crea 316.3 ug/mg Cr
== END 2025-03-25 14:15 | disposition home or self-care (01) ==
LOC: NCHCN 14:14
PROVIDERS: PCP Family Medicine; Visit Provider Family Medicine
DX: E11.9 Type 2 diabetes mellitus without complications (principal); R30.0 Dysuria
CPT/HCPCS: 82043; 82570; 87086